=== PATIENT | female | born 2000 | race Caucasian/White ===

== ENCOUNTER 2019-10-16 10:40 | Emergency (ER) | payer OTHER ==
[~2019-10-16] VITALS: Ht 157.5 cm; Wt 60.8 kg
[2019-10-16 10:46] VITALS: BP 133/73
--- NOTE | 2019-10-16 10:51 | NUR ---
Patient ambulated to bed 9 with family. RN evaluating patient at bedside.
[2019-10-16] MEDS ORDERED: KETOROLAC 60 MG/2 ML VIAL IM ONE (10:55)
--- NOTE | 2019-10-16 11:10 | NUR ---
18 Y/O C/O LOWER ABDOMINAL PAIN 10/10 MONTHLY WITH HER MENSTRATION. PT STARTED HER PERIOD YESTERDAY, STATES SHE HAS THIS PAIN OFF AND ON EACH MONTH. PT DENIES N/V. PT POSITIONED FOR COMFORT, MOTHER AT BEDSIDE. JENI
--- NOTE | 2019-10-16 11:12 | NUR ---
PT GIVEN TORADOL IM FOR PAIN, TOLERATED INJECTION WELL.
--- NOTE | 2019-10-16 11:27 | NUR ---
PT RESTING COMFORTABLY, GAVE PT A BLANKET. PAIN LEVEL WENT DOWN TO 5/10.
--- NOTE | 2019-10-16 11:28 | NUR ---
Dr. Tong is evaluating the patient at bedside.
--- NOTE | 2019-10-16 11:52 | NUR ---
US tech at bedside for exam.
--- NOTE | 2019-10-16 12:04 | NUR ---
ULTRASOUND AT BEDSIDE.
--- NOTE | 2019-10-16 12:47 | NUR ---
LAB AT BEDSIDE DRAWING ORDERED LAB WORK.
[2019-10-16 12:54] LABS: BASOPHILS # (AUTO) 0.1 K/uL (0.00-0.22); BASOPHILS % (AUTO) 0.4 % (0.0-2.0); EOSINOPHILS # (AUTO) 0.1 K/uL (0-0.4); EOSINOPHILS % (AUTO) 0.8 % (0.0-4.0); HEMATOCRIT 40.3 % (36-48); LYMPHOCYTES # (AUTO) 1.3 K/uL (2.5-16.5); MEAN CORPUSCULAR HEMOGLOBIN 26 pg (27-31); MEAN CORPUSCULAR HGB CONC 32 g/dL (33-37); MONOCYTES # (AUTO) 0.7 K/uL (0.8-1.0); MONOCYTES % (AUTO) 5.1 % (1.7-9.3); NEUTROPHILS # (AUTO) 10.9 K/uL (1.8-7.7); NEUTROPHILS % (AUTO) 83.7 % (42.2-75.2); PLATELET COUNT (AUTO) 333 K/uL (140-450); RED BLOOD CELL COUNT(AUTO) 4.97 MIL/uL (4.20-5.40); RED CELL DISTRIBUTION WIDTH 14.7 % (11.6-13.7)
[2019-10-16 13:05] LABS: BILIRUBIN,URINE NEGATIVE (NEGATIVE); BLOOD, URINE 3+ (NEGATIVE); LEUKOCYTE ESTERASE ,URINE NEGATIVE (NEGATIVE); NITRITE, URINE NEGATIVE (NEGATIVE); UGLUCOSE NEGATIVE (NEGATIVE)
[2019-10-16 13:10] LABS: COLOR,URINE RED (YELLOW)
[2019-10-16 13:11] LABS: APPEARANCE,URINE HAZY (CLEAR)
[2019-10-16 13:13] LABS: ANION GAP 14.2 (8-16); CARBON DIOXIDE 25.8 mmol/L (21-32); CREATININE 0.6 mg/dL (0.6-1.3)
[2019-10-16 13:32] LABS: ALBUMIN 4.1 g/dL (3.4-5.0); TOTAL BILIRUBIN 0.4 mg/dL (0.0-1.0)
--- NOTE | 2019-10-16 13:58 | NUR ---
PT RESTING COMFORTABL, VSS. INFORMED WAITING FOR TEST RESULTS TO COME IN.
[2019-10-16 14:25] LABS: RBC,URINE TOO NUMEROUS TO COUN /HPF (0-5)
[2019-10-16 14:26] LABS: WBC,URINE 0-5 /HPF (0-5)
[2019-10-16 14:38] VITALS: BP 133/73
== END 2019-10-16 14:40 | disposition home or self-care (01) ==
LOC: MED 10:40
DX: R10.2 Pelvic and perineal pain (principal); J45.909 Unspecified asthma, uncomplicated
CPT/HCPCS: 36415; 76856; 80053; 81001; 83690; 85025; 96372; 99284; J1885; Q0092